=== PATIENT | female | born 1980 | race Caucasian/White ===

== ENCOUNTER 2018-11-03 11:51 | Outpatient (CLI) | payer BC | END 2018-11-03 14:45 | disposition home or self-care (01) | LOC: OBT 11:51 → L-D 11:51 → OBT 14:45 | DX: O24.419 Gestational diabetes mellitus in pregnancy, unspecified control (principal); O09.513 Supervision of elderly primigravida, third trimester; Z3A.36 36 weeks gestation of pregnancy | CPT/HCPCS: 76815; 76818; 82962 ==